=== PATIENT | male | born 1955 | race African-American/Black ===

== ENCOUNTER 2024-07-09 04:19 | Emergency (ER) | payer MEDICARE, MEDICAID ==
[~2024-07-09] VITALS: Ht 180.3 cm; Wt 85.0 kg
[2024-07-09 04:23] VITALS: TEMP 98.6; O2SAT 96
[2024-07-09] MEDS: ACETAMINOPHEN 325MG TABLET PO ONE (05:56)
[2024-07-09] MEDS ORDERED: ACET-2708 MT (06:18)
[2024-07-09 06:46] VITALS: BP 142/93; PULSE 90; RESP 16
== END 2024-07-09 06:46 | disposition home or self-care (01) ==
LOC: ER 04:31
DX: M25.562 Pain in left knee (principal); I25.2 Old myocardial infarction; I11.9 Hypertensive heart disease without heart failure; R51.9 Headache, unspecified
CPT/HCPCS: 73562; 99284